=== PATIENT | female | born 1980 | race Caucasian/White ===

== ENCOUNTER 2017-05-14 15:14 | Emergency (ER) | payer OTHER ==
[2017-05-14 15:50] VITALS: BP 129/81
--- NOTE | 2017-05-14 16:27 | UC ---
Throat Pain/Nasal Jovi HPI - HPI Summary HPI Summary: 36F presents with sore throat for past couple days. She admits to cough that is dry. She admits to subjective fevers. She took some tyenlol. She denies any nausea or vomiting or abdominal pain. She denies any chest pain or SOB. She has tried otc cold medication without relief. She states her throat is what is bothering her the most. - History of Current Complaint Chief Complaint: UCGeneralIllness Stated Complaint: SORE THROAT Time Seen by Provider: 05/14/17 16:11 Pain Intensity: 8 - Allergies/Home Medications Allergies/Adverse Reactions: Allergies Allergy/AdvReac Type Severity Reaction Status Date / Time No Known Allergies Allergy Verified 05/14/17 15:50 Home Medications: Home Medications DULoxetine DR CAP* [Cymbalta CAP*] 20 mg PO DAILY 05/14/17 [History Confirmed ] Levothyroxine Sodium [Levoxyl] 200 mcg PO DAILY 05/14/17 [History Confirmed ] PMH/Surg Hx/FS Hx/Imm Hx Endocrine History: Hypothyroidism Respiratory History: Other Other Respiratory History: no asthma - Surgical History Surgical History: Yes Surgery Procedure, Year, and Place: c section x2. carpal tunnel right side. tubal - Family History Known Family History: Positive: Hypertension - Social History Alcohol Use: None Substance Use Type: None Smoking Status (MU): Current Some Day Smoker Type: Cigarettes - Immunization History Most Recent Tetanus Shot: flu vac 01/2017 Review of Systems Constitutional: Fever ENT: Sore Throat Respiratory: Cough Cardiovascular: Negative All Other Systems Reviewed And Are Negative: Yes Physical Exam Triage Information Reviewed: Yes Appearance: Well-Appearing Vital Signs: Initial Vital Signs Temp 99 F 05/14/17 15:43 Pulse 76 05/14/17 15:43 Resp 17 05/14/17 15:43 BP 129/81 05/14/17 15:43 Pulse Ox 100 05/14/17 15:43 Vital Signs Reviewed: Yes Eyes: Positive: Conjunctiva Clear ENT: Positive: Pharyngeal erythema, TMs normal, Uvula midline, Other - soft palate symmetric. Negative: Tonsillar swelling, Tonsillar exudate, Trismus, Muffled voice Neck: Positive: Supple, Nontender, No Lymphadenopathy Respiratory: Positive: Lungs clear, Normal breath sounds Cardiovascular: Positive: RRR Abdomen Description: Positive: Nontender, Soft Bowel Sounds: Positive: Present Musculoskeletal Exam: Normal Neurological Exam: Normal Psychological Exam: Normal Skin Exam: Normal Throat Pain/Nasal Course/Dx - Course Course Of Treatment: 36F presents with sore throat for past couple days. She admits to cough that is dry. She admits to subjective fevers. She took some tyenlol. She denies any nausea or vomiting or abdominal pain. She denies any chest pain or SOB. She has tried otc cold medication without relief. She states her throat is what is bothering her the most. on exam pharynx erythema, uvula midline, soft palate symmetric. lungs CTA, neg egophony, strept neg. will treat with supporatively with decadron and magic mouth wash. patient understand and agrees with plan. - Differential Dx/Diagnosis Differential Diagnosis/HQI/PQRI: Pharyngitis, Tonsillitis, URI Provider Diagnoses: pharynigitis Discharge - Discharge Plan Condition: Good Disposition: HOME Prescriptions: Dexamethasone TAB* [Decadron TAB*] 4 mg PO DAILY #5 tab Magic Mouth Was-MAYA/MAAL/LIDO* 5 ml SWISH SPIT QID #100 ml Patient Education Materials: Pharyngitis (ED) Referrals: Debi MAZA,Angus Santana [Primary Care Provider] - Additional Instructions: Magic mouthwash 5ml swish and spit can use 4x a day Take steroid once a day for 5 days Take Tylenol or ibuprofen for pain every 6 hours Can gargle salt water Can use cough drops or products such as cloraseptic spray Follow up with primary within a week if no improvement Return to ED if develop any new or worsening symptoms
== END 2017-05-14 16:31 | disposition home or self-care (01) ==
LOC: UCCORT 15:14
DX: J02.9 Acute pharyngitis, unspecified (principal); F17.210 Nicotine dependence, cigarettes, uncomplicated
CPT/HCPCS: 87651; 99212; G0463

== ENCOUNTER 2018-10-10 16:50 | Emergency (ER) | payer OTHER ==
[2018-10-10 17:03] VITALS: BP 139/79
--- NOTE | 2018-10-10 17:20 | UC ---
Abdominal Pain Female HPI - HPI Summary HPI Summary: 37-year-old female comes in with a chief complaint of sudden onset of lower abdominal pain. Started several hours ago. Patient feels bloated she's vomited. She has had C-sections. Pain is severe. Any kind of movement makes it worse. She states it slowly across the lower aspect does not indicate the pain is either right or left nor does not have any flank pain or epigastric pain. - History of Current Complaint Chief Complaint: UCAbdominalPain Stated Complaint: ABDOMINAL PAIN Time Seen by Provider: 10/10/18 17:14 Hx Last Menstrual Period: ~08/26/18 (Denies intercourse since last period) Pain Intensity: 8 Allergies/Adverse Reactions: Allergies Allergy/AdvReac Type Severity Reaction Status Date / Time No Known Allergies Allergy Verified 10/10/18 16:57 Home Medications: Home Medications Acetaminophen TAB* [Tylenol TAB*] 650 mg PO Q4H PRN 10/10/18 [History Confirmed 10/10/18] PMH/Surg Hx/FS Hx/Imm Hx Previously Healthy: Yes Endocrine History: Hypothyroidism - Surgical History Surgical History: Yes Surgery Procedure, Year, and Place: D&C, 09/2017; Tubal Ligation, ~2007; C- Sections, 2002 2001; Right Carpal Tunnel - Family History Known Family History: Positive: Hypertension - Social History Alcohol Use: None Substance Use Type: None Smoking Status (MU): Former Smoker Type: Cigarettes Length of Time of Smoking/Using Tobacco: On and Off Since Age 17 When Did the Patient Quit Smoking/Using Tobacco: ~09/09/18 - Immunization History Most Recent Tetanus Shot: flu vac 01/2017 Review of Systems All Other Systems Reviewed And Are Negative: Yes Constitutional: Positive: Negative Skin: Positive: Negative Eyes: Positive: Negative ENT: Positive: Negative Respiratory: Positive: Negative Cardiovascular: Positive: Negative Gastrointestinal: Positive: Abdominal Pain, Vomiting Genitourinary: Positive: Negative Motor: Positive: Negative Neurovascular: Positive: Negative Musculoskeletal: Positive: Negative Neurological: Positive: Negative Psychological: Positive: Negative Is Patient Immunocompromised?: No Physical Exam Triage Information Reviewed: Yes Appearance: Well-Nourished, Ill-Appearing - mild, Pain Distress - mild Vital Signs: Initial Vital Signs Temp 98.2 F 10/10/18 16:53 Pulse 58 10/10/18 16:53 Resp 18 10/10/18 16:53 BP 139/79 10/10/18 16:53 Pulse Ox 100 10/10/18 16:53 Vital Signs Reviewed: Yes Eye Exam: Normal Eyes: Positive: Conjunctiva Clear Neck: Positive: Supple Respiratory: Positive: Lungs clear, Normal breath sounds, No respiratory distress Cardiovascular: Positive: RRR Abdomen Description: Positive: Distended - lower, Other: - tender to palpation lower. Negative: CVA Tenderness (R), CVA Tenderness (L) Bowel Sounds: Positive: Hypoactive Musculoskeletal: Positive: Strength Intact, ROM Intact Neurological: Positive: Alert, Muscle Tone Normal Psychological Exam: Normal Psychological: Positive: Normal Response To Family, Age Appropriate Behavior Skin Exam: Normal Abd Pain Female Course/Dx - Course Course Of Treatment: I recommended further eval in Emergency department. Patient prefers to go by POV. I spoke with [place] ED provider marlene. - Differential Dx/Diagnosis Provider Diagnosis: Lower abdominal pain Discharge - Sign-Out/Discharge Documenting (check all that apply): Patient Departure All imaging exams completed and their final reports reviewed: No Studies - Discharge Plan Condition: Stable Disposition: HOME-RECOMMEND TO ED Referrals: Angus Carrera PA [Primary Care Provider] - Additional Instructions: GO DIRECTLY TO THE EMERGENCY DEPARTMENT FOR FURTHER EVALUATION. - Billing Disposition and Condition Condition: STABLE Disposition: Home-Recommend to ED
== END 2018-10-10 17:30 | disposition home health service (06) ==
LOC: UCCORT 16:50
DX: R10.30 Lower abdominal pain, unspecified (principal); Z87.891 Personal history of nicotine dependence
CPT/HCPCS: 99212; G0463

== ENCOUNTER 2019-03-24 13:48 | Emergency (ER) | payer OTHER ==
--- NOTE | 2019-03-24 13:52 | UC ---
Knee Pain HPI - HPI Summary HPI Summary: 38 yo female presents with RIGHT knee pain. She tells me that last night she was in the parking lot at work and fell on the ice landing on both of her knees right > left. She rested, iced, and elevated her knee last night and took ibuprofen with mild relief. Today noticed some swelling to the area and pain with ambulation. She is concerned for fracture. Denies numbness or tingling. - History of Current Complaint Stated Complaint: S/P FALL, KNEE INJURY- WC Time Seen by Provider: 03/24/19 13:52 Hx Obtained From: Patient Hx Last Menstrual Period: ~08/26/18 (Denies intercourse since last period) Severity Initially: Moderate Severity Currently: Moderate Pain Intensity: 5 Pain Scale Used: 0-10 Numeric - Allergies/Home Medications Allergies/Adverse Reactions: Allergies Allergy/AdvReac Type Severity Reaction Status Date / Time No Known Allergies Allergy Verified 03/24/19 14:06 Home Medications: Home Medications Ibuprofen TAB* [Advil TAB*] 800 mg PO Q6H PRN 03/24/19 [History Confirmed ] celeCOXIB CAP* [CeleBREX CAP*] 100 mg PO BID 03/24/19 [History Confirmed ] PMH/Surg Hx/FS Hx/Imm Hx Endocrine History: Hypothyroidism - Surgical History Surgical History: Yes Surgery Procedure, Year, and Place: D&C, 09/2017; Tubal Ligation, ~2007; C- Sections, 2002 2001; Right Carpal Tunnel - Family History Known Family History: Positive: Hypertension - Social History Occupation: Employed Full-time Lives: With Family Alcohol Use: None Substance Use Type: None Smoking Status (MU): Former Smoker Type: Cigarettes Length of Time of Smoking/Using Tobacco: On and Off Since Age 17 When Did the Patient Quit Smoking/Using Tobacco: ~09/09/18 - Immunization History Most Recent Tetanus Shot: flu vac 01/2017 Review of Systems All Other Systems Reviewed And Are Negative: No Constitutional: Positive: Negative Skin: Positive: Negative Respiratory: Positive: Negative Cardiovascular: Positive: Negative Neurovascular: Positive: Negative Musculoskeletal: Positive: Other: - Right knee pain Neurological: Positive: Negative Psychological: Positive: Negative Physical Exam - Summary Physical Exam Summary: GENERAL: NAD. WDWN. No pain distress. SKIN: Superficial abrasion to inferior right knee. No open wound or bleeding. Clean appearing. CHEST: No accessory muscle use. Breathing comfortably and in no distress. CV: Pulses intact popliteal, PT, and DP. Cap refill <2seconds MSK: RIGHT KNEE: FROM, mild pain with full extension. Strength 5/5. Mild edema at right inferior knee joint. No patella apprehension. Negative Mary, A/P drawer, Aspen, and varus/valgus stress. NEURO: Alert. Sensations intact and symmetric B/L LEs PSYCH: Age appropriate behavior. Triage Information Reviewed: Yes Vital Signs: Vital Signs: Temp Pulse Resp BP Pulse Ox 98.4 F 72 16 116/76 100 03/24/19 14:08 03/24/19 14:08 03/24/19 14:08 03/24/19 14:08 03/24/19 14:08 Vital Signs Reviewed: Yes Diagnostics - Radiology Knee XR Radiology Interpretation Completed By: Radiologist Summary of Radiographic Findings: IMPRESSION: 1. Small joint effusion. 2. Osteopenia with no displaced fracture. 3. Mild osteoporosis arthropathy as above. Knee Pain Course/Dx - Course Course Of Treatment: XR as above. Suspect contusion/sprain. Advised to continue ibuprofen and RICE therapy and f/u if symptoms do not improve. - Differential Dx/Diagnosis Provider Diagnosis: Right knee injury Discharge ED - Sign-Out/Discharge Documenting (check all that apply): Patient Departure All imaging exams completed and their final reports reviewed: Yes - Discharge Plan Condition: Stable Disposition: HOME Patient Education Materials: Contusion in Adults (ED) Forms: *Work Release Referrals: Angus Carrera PA [Primary Care Provider] - Edd Cintron MD [Medical Doctor] - If Needed Additional Instructions: If you develop a fever, shortness of breath, chest pain, new or worsening symptoms - please call your PCP or go to the ED immediately. Your X-ray was normal today Rest, Ice, and elevate your knee to decrease pain and swelling. May continue tylenol/ibuprofen as directed for discomfort. If your symptoms do not improve within 5-7 days, please call Orthopedics at the number below to schedule an appointment for further evaluation. - Billing Disposition and Condition Condition: STABLE Disposition: Home
--- OUTSIDE RECORDS SUMMARY | 2019-03-24 14:01 | XMS REPORT | Continuity of Care Document ---
:1980 External Reference #:[id number] Author Name Stacy Malave, [facility] Address [address] [place] [id number] Care Team Providers Name Role Phone Angus Carrera PA - Medical Care Team Information Oil Producer [phone] Problems Active Problems Provider Date Sprain of shoulder and upper arm Gill Barnes PA Onset: 08/13/2015 Lesion of radial nerve Gill Barnes PA Onset: 08/13/2015 Carpal tunnel syndrome Gill Barnes PA Onset: 08/13/2015 Social History Type Date Description Comments Sex Unknown Tobacco Use Start: Unknown Light tobacco smoker (10 or fewer cigarettes/day) ETOH Use Denies alcohol use Tobacco Use Start: Unknown End: Patient is a former smoker Unknown Recreational Drug Use Denies Drug Use Allergies, Adverse Reactions, Alerts Description No Known Drug Allergies Medications Active Medications SIG Qnty Indications Ordering Date Provider Celecoxib 1 cap by mouth 60caps Vikki Fraga, 02/01/2019 100mg Capsules twice a day after MD meals Levothyroxine Sodium Take One Tablet Unknown By Mouth Every 200mcg Tablets Day On An Empty Stomach Diclofenac Sodium Apply 2 Grams To Unknown 1% Gel The Affected Area 3 4 Times A Day Make Sure To Massage Into Skin For 1 Minute Or Longer History Medications Diclofenac Sodium apply 2gm to 300gm Vikki Fraga MD 01/27/2019 - 1% affected area 3-4 01/31/2019 Gel times a day. make sure to massage into skin for 1 minute or longer Diclofenac Sodium use 1/2cm gel over 300gm Vikki Fraga MD 01/25/2019 - 3% 5cm area of skin 01/27/2019 Gel twice a day to affected area, knees. massage into skin for 60 seconds Diclofenac Sodium take 1 tablet by 60tabs Vikki Fraga MD 01/17/2019 - mouth twice daily 01/25/[address] with food Immunizations Description No Information Available Vital Signs Date Vital Result Comment 03/01/2019 9:59am BP Systolic 129 mmHg BP Diastolic 90 mmHg Body Temperature 97.1 F Heart Rate 76 /min O2 % BldC Oximetry 97 % 01/17/2019 9:12am BP Systolic 128 mmHg BP Diastolic 84 mmHg Body Temperature 97.6 F Heart Rate 76 /min Height 65 inches 5'5" Weight 273.00 lb BMI (Body Mass Index) 45.4 kg/m2 BSA (Body Surface Area) 2.26 m2 [place] body weight in kilograms 57 kg O2 % BldC Oximetry 98 % Results Description No Information Available Procedures Description No Information Available Medical Devices Description No Information Available Encounters Type Date Location Provider Dx Diagnosis Office Visit 03/01/2019 Orthopaedic Office Stacy Malave M17.11 Unilateral 10:00a S., [facility] primary osteoarthritis, right knee Office Visit 01/17/2019 Orthopaedic Office Stacy Malave M25.561 Pain in right 9:00a S., [facility] knee M17.11 Unilateral primary osteoarthritis, right knee Assessments Date Code Description Provider 03/01/2019 M17.11 Unilateral primary osteoarthritis, right Stacy Malave [facility] knee 01/17/2019 M25.561 Pain in right knee Stacy Malave [facility] 01/17/2019 M17.11 Unilateral primary osteoarthritis, right Stacy Malave [facility] knee Plan of Treatment No Information Available Functional Status Description No Information Available Mental Status Description No Information Available Referrals Description No Information Available
[2019-03-24 14:21] VITALS: BP 116/76
== END 2019-03-24 15:04 | disposition home or self-care (01) ==
LOC: UCCORT 13:48
DX: S89.91XA Unspecified injury of right lower leg, initial encounter (principal); M25.461 Effusion, right knee; M85.861 Other specified disorders of bone density and structure, right lower leg; M81.0 Age-related osteoporosis without current pathological fracture; Z87.891 Personal history of nicotine dependence; W00.9XXA Unspecified fall due to ice and snow, initial encounter; Y92.481 Parking lot as the place of occurrence of the external cause
CPT/HCPCS: 99211; G0463